=== PATIENT | male | born 1950 | race Caucasian/White ===

== ENCOUNTER 2019-11-05 04:23 | Emergency (ER) | payer MEDICARE, SELFPAY ==
--- NOTE | ~2019-11-05 | CT_ITS ---
EXAMINATION: CT chest abdomen pelvis w con DATE: 11/05/2019 08:03 CDT INDICATION: Fall. Right flank pain. TECHNIQUE: Computed tomography (CT) of the chest, abdomen, and pelvis was performed with 100 cc Omnip aque 350 intravenous contrast. The dose-length product was 541.11 mGy-cm. Automated exposure control and iterative reconstruction technique were employed. COMPARISON: None FINDINGS: CHEST CT: No significant pleural or pericardial effusion. Heart size normal. No evidence for aortic aneurysm or dissection. There is an acute right 10th rib fracture laterally. No pneumothorax. There is emphysema . Calcified granuloma right middle lobe. No focal airspace consolidation. There is coronary atheroscl erosis. ABDOMEN/PELVIS CT: The liver, spleen, pancreas, adrenal glands and kidneys are unremarkable. Gallbladder is present. Non obstructive bowel gas pattern. Bladder is unremarkable. Fatty infiltration of the liver. No free air or free fluid. IMPRESSION: 1. Acute right 10th rib fracture. 2: Emphysema. 3: Hepatic steatosis. Reviewed, dictated and finalized at location B.
[2019-11-05 04:24] VITALS: BP 126/85; PULSE 64; RESP 16; TEMP 36.6; O2SAT 100
--- NOTE | 2019-11-05 04:53 | ED.FALL ---
HPI - Fall General Chief Complaint: Fall Stated Complaint: FALL Time Seen by Provider: 11/05/19 04:29 Source: patient Mode of arrival: EMS Limitations: no limitations History of Present Illness HPI Narrative: This patient is a 68 year old male who presents for evaluation of right flank pain s/p fall. PAtient states he tripped at 3 am this morning. He states he landed on the basement floor . He called 911 for evaluation of pain on right side. He denies hitting his head or LOC. He denies nausea, vomiting, dizziness, or lightheadedness. He takes aspirin every 2 weeks. complaint: fall Related Data Home Medications Medication Instructions Recorded Confirmed aspirin 325 mg tablet 325 mg PO WEEKLY tablet 10/14/19 methylcellulose (laxative) 500 mg 1,500 mg PO DAILY tablet 10/14/19 tablet multivitamin 1 tablet PO DAILY 10/14/19 vitamin E 200 unit capsule 200 unit PO DAILY 10/14/19 Allergies Allergy/AdvReac Type Severity Reaction Status Date / Time Sulfa (Sulfonamide Allergy Unknown Nausea Verified 11/05/19 04:29 Antibiotics) ORAMYCIN Allergy Unknown Unknown Uncoded 11/05/19 04:29 Review of Systems Review of Systems: All systems reviewed & are unremarkable except as noted in HPI and below Constitutional: Constitutional: Denies chills and Denies fever(s) Respiratory: Respiratory: Denies cough, Denies dyspnea and Denies wheezing PMFSH Past Medical History Medical History (Updated 11/05/19 @ 06:57 by Mary Kuhn MD) Essential (primary) hypertension Mixed hyperlipidemia Social History Social History Alcohol intake: current Gender identity (if verbalized by the patient): Male Exam Const: General: no acute distress and alert Orientation/consciousness: patient oriented x3 HENMT: Head: atraumatic Ears: hearing grossly normal bilaterally Mouth: Yes Normal oral and palatal mucosa present and Yes lip normal Throat: posterior oropharynx normal, tonsils normal and uvula midline Eyes: Pupils: Equal, round and reactive pupils present EOM: EOMs intact bilaterally Resp: Effort & Inspection: normal respiratory effort, no retractions and no use of accessory muscles Auscultation: clear to auscultation bilaterally Cardio: Rate: regular rate Rhythm: regular rhythm Heart sounds: no murmurs GI: GI Palp: Yes Soft to palpation and Yes Tenderness to palpation present (GI) (right flank) Auscultation: normal bowel sounds Skin: Rashes: no rashes Other: right lower flank with small area of abrasion and bruising Neuro: General: patient oriented x3 and moves all extremities Extrem: General: normal to inspection Psych: Mental Status: mental status grossly normal Affect: normal affect Course Vital Signs Vital signs: Vital Signs Temperature 97.8 F 11/05/19 04:24 Pulse Rate 64 11/05/19 04:24 Respiratory Rate 16 11/05/19 04:24 Blood Pressure 126/85 11/05/19 04:24 Pulse Oximetry 100 11/05/19 04:24 Temperature 97.8 F 11/05/19 04:24 Pulse Rate 64 11/05/19 04:24 Respiratory Rate 16 11/05/19 04:24 Blood Pressure 126/85 11/05/19 04:24 Pulse Oximetry 100 11/05/19 04:24 MDM - Fall Lab Data Attestation: I reviewed the patient's lab results. Result diagrams: 11/05/19 05:00 11/05/19 05:00 Labs: Lab Results 11/05/19 11/05/19 11/05/19 Range/Units 05:00 05:00 05:00 WBC 8.5 (4.5-10.0) K/mm3 RBC 4.02 L (4.6-6.20) M/mm3 Hgb 14.0 (14.0-18.0) g/dL Hct 40.5 L (42.0-52.0) % MCV 100.7 H (80-100) fl MCH 34.8 H (26-34) pg MCHC 34.6 (32-36) g/dl RDW 12.2 (11.5-14.5) % Plt Count 219 (150-375) k/mm3 MPV 9.1 (7.4-10.4) fl Immature Gran % (Auto) 0.4 (0-0.5) % Neut % (Auto) 57.2 (45.5-73.1) % Lymph % (Auto) 30.9 (18.3-44.2) % Victoria % (Auto) 8.7 H (2.6-8.5) % Eos % (Auto) 2.2 (0-4.4) % Baso % (Auto) 0.6
[2019-11-05 05:10] LABS: Basophils Absolute Auto 0.1 K/mm3 (0.0-0.1); Basophils Percent Auto 0.6 % (0.2-1.2); Eosinophils Absolute Auto 0.2 K/mm3 (0-0.3); Eosinophils Percent Auto 2.2 % (0-4.4); Hematocrit 40.5 % (42.0-52.0); Immature Granulocyte Absolute 0.03 K/mm3 (0.00-0.031); Immature Granulocyte Percent A 0.4 % (0-0.5); Lymphocytes Absolute Auto 2.64 K/mm3 (0.9-3.2); Lymphocytes Percent Auto 30.9 % (18.3-44.2); Mean Corpuscular HGB Conc 34.6 g/dl (32-36); Mean Corpuscular Hemoglobin 34.8 pg (26-34); Mean Corpuscular Volume 100.7 fl (80-100); Mean Platelet Volume 9.1 fl (7.4-10.4); Monocytes Absolute Auto 0.7 K/mm3 (0.1-0.6); Monocytes Percent Auto 8.7 % (2.6-8.5); Neutrophils Absolute Auto 4.9 K/mm3 (1.3-6.7); Neutrophils Percent Auto 57.2 % (45.5-73.1); Platelet Count Result 219 k/mm3 (150-375); Red Blood Count 4.02 M/mm3 (4.6-6.20); Red Cell Distribution Width 12.2 % (11.5-14.5); White Blood Count 8.5 K/mm3 (4.5-10.0)
[2019-11-05 05:20] LABS: Prothrombin Time 12.9 Seconds (11.1-14.7)
[2019-11-05 05:25] LABS: Alanine Aminotransferase 17 U/L (4-50); Alkaline Phosphatase 55 U/L (38-126); Aspartate Amino Transferase 30 U/L (17-59); Bilirubin,Total 0.2 mg/dL (0.2-1.3); Blood Urea Nitrogen 9 mg/dL (9-20); Calcium 8.8 mg/dL (8.4-10.2); Carbon Dioxide 22 mmol/L (22-30); Chloride 103 mmol/L (98-107); Estimated Glomerular Filt Rate > 60; Glucose 93 mg/dL (75-110); Potassium 3.9 mmol/L (3.4-5.0); Sodium 135 mmol/L (137-145)
[2019-11-05 06:05] LABS: Add Urine Microscopic? YES; Appearance Urine Clear (Clear); Bilirubin Urine Negative (Negative); Blood Urine 1+ (Negative); Color Urine Colorless (Yellow); Glucose Urine UA Negative (Negative); Ketones Urine Negative (Negative); Leukocyte Esterase Ur Negative LEU/UL (Negative); Nitrate Urine Negative (Negative); Protein Urine Negative (Negative); Specific Grav Ur 1.005 (1.001-1.035); Urobilinogen Urine Negative mg/dL (<2.0); WBC Urine 0-3 /hpf
[2019-11-05 07:15] VITALS: BP 128/75; PULSE 68; RESP 16; O2SAT 99
== END 2019-11-05 07:17 | disposition home or self-care (01) ==
PROVIDERS: Emergency Provider General Practice; PCP Family Medicine
DX: S22.31XA Fracture of one rib, right side, initial encounter for closed fracture (principal); I10 Essential (primary) hypertension; Z79.82 Long term (current) use of aspirin; E78.2 Mixed hyperlipidemia; W01.0XXA Fall on same level from slipping, tripping and stumbling without subsequent striking against object, initial encounter
CPT/HCPCS: 36415; 71260; 74177; 80053; 81001; 85025; 85610; 85730; 99284; Q9967

== ENCOUNTER → 2020-05-13 11:42 | Outpatient (CLI) | payer MEDICARE, SELFPAY ==
--- NOTE | ~2020-05-13 | CT_ITS ---
EXAMINATION:CT lung screening DATE: 05/13/2020 11:56 INDICATION: Personal history of tobacco dependence. Current smoker with 30 pack year history. TECHNIQUE: Computed tomography (CT) of the chest was performed without intravenous contrast. Automate d exposure control and iterative reconstruction technique were employed. The dose-length product (DLP ) was 70.84 mGy-cm. COMPARISON: Chest CT 11/05/2019 FINDINGS: There is mild scarring at the lung apices. There is mild emphysema. Again seen is a 5 mm no dule in right upper lobe. Again seen is a 5 mm nodule at left major fissure. A calcified right lung n odule is consistent with old granulomatous disease. There is mild dependent atelectasis bilaterally. No pleural effusion. The heart size is normal. There are coronary artery calcifications. No pericardi al effusion. There is mild thoracic spondylosis. There is an old healed fracture of right 10th rib. IMPRESSION: 1. Lung-RADS category 2: Benign appearance or behavior. Continue annual screening with noncontrast lo w-dose chest CT in 12 months. Reviewed, dictated and finalized at location B. ING MACHINE OPERATOR IMPRESSION: 1. Lung-RADS category 2: Benign appearance or behavior. Continue annual screeni ng with noncontrast low-dose chest CT in 12 months.
== END ==
PROVIDERS: PCP Family Medicine; Visit Provider Family Medicine
DX: Z12.2 Encounter for screening for malignant neoplasm of respiratory organs (principal); Z87.891 Personal history of nicotine dependence
CPT/HCPCS: 71271

== ENCOUNTER → 2021-05-16 13:52 | Outpatient (CLI) | payer MEDICARE, SELFPAY ==
--- NOTE | ~2021-05-16 | CT_ITS ---
EXAMINATION: CT lung screening DATE: 05/16/2021 14:04 INDICATION: Personal history of nicotine dependence TECHNIQUE: Computed tomography (CT) of the chest was performed without intravenous contrast. The dose -length product was 71.62 mGy-cm. Automated exposure control and iterative reconstruction technique w ere employed. COMPARISON: CT dated 05/13/2020 FINDINGS: Heart size normal. No thoracic lymphadenopathy. No significant pleural or pericardial effus ion. There is atherosclerosis of the aorta and coronary arteries. The upper abdomen is unremarkable. Stable 5 mm fissural nodule on the left. There is a 5 mm right upper lobe nodule adjacent to the medi astinum, image 43, stable. No new pulmonary nodules or masses. No pneumothorax. No significant pleura l or pericardial effusion. IMPRESSION: 1. Lung-RADS category 2: Benign appearance or behavior. Continue annual screening with noncontrast lo w-dose chest CT in 12 months. Reviewed, dictated and finalized at location B. MBLY MACHINE TENDER IMPRESSION: 1. Lung-RADS category 2: Benign appearance or behavior. Continue annual screeni ng with noncontrast low-dose chest CT in 12 months.
== END ==
PROVIDERS: PCP Family Medicine; Visit Provider Family Medicine
DX: Z87.891 Personal history of nicotine dependence (principal)
CPT/HCPCS: 71271

== ENCOUNTER → 2022-05-02 14:38 | Outpatient (CLI) | payer MEDICARE, SELFPAY ==
--- NOTE | ~2022-05-02 | CT_ITS ---
EXAMINATION:CT lung screening DATE: 05/02/2022 14:52 INDICATION: Personal history of nicotine dependence. Current smoker with 30 pack year history. TECHNIQUE: Computed tomography (CT) of the chest was performed without intravenous contrast. Automate d exposure control and iterative reconstruction technique were employed. The dose-length product (DLP ) was 61.32 mGy-cm. COMPARISON: Chest CT 05/16/2021 FINDINGS: There is stable mild scarring at the lung apices. There is mild emphysema. There is a stabl e 4 mm nodule in right upper lobe. There is a stable 4 mm nodule at left major fissure. There is mild atelectasis on the right. A calcified right lung nodule is consistent with old granulomatous disease . No pleural effusion. The heart size is normal. There are coronary artery calcifications. No pericar dial effusion. There is mild thoracic spondylosis. There is mild chronic anterior wedging of multiple vertebral bodies. IMPRESSION: 1. Lung-RADS category 2: Benign appearance or behavior. Continue annual screening with noncontrast lo w-dose chest CT in 12 months. Reviewed, dictated and finalized at location A. NUE FIELD AUDITOR IMPRESSION: 1. Lung-RADS category 2: Benign appearance or behavior. Continue annual screeni ng with noncontrast low-dose chest CT in 12 months.
== END ==
PROVIDERS: PCP Emergency Medicine; Visit Provider Emergency Medicine
DX: Z12.2 Encounter for screening for malignant neoplasm of respiratory organs (principal); Z87.891 Personal history of nicotine dependence
CPT/HCPCS: 71271

== ENCOUNTER 2022-12-31 12:59 | Emergency (ER) | payer MEDICARE, SELFPAY ==
[2022-12-31 13:15] VITALS: BP 143/76; PULSE 83; RESP 16; TEMP 36.5; O2SAT 97
--- NOTE | 2022-12-31 13:29 | ED.SKABFB ---
HPI - Skin/Abscess/Foreign Bdy General Chief complaint: Skin/Abscess/Foreign Body Stated complaint: INSECT BITE Time Seen by Provider: 12/31/22 13:29 Source: patient Mode of arrival: ambulatory Limitations: no limitations History of Present Illness HPI narrative: Patient is a 72-year-old male that presents with insect bite to left shoulder in surrounding redness. Patient states it has been there for a week. Denies any drainage from wound. States over the last few days the area of redness has grown. Patient is put a Band-Aid on it. Denies any fever, chills, nausea, vomiting, diarrhea. Does report the by is itchy. Related Data Home Medications Medication Instructions Recorded Confirmed methylcellulose (laxative) 500 mg 1,500 mg PO DAILY 10/14/19 12/31/22 tablet (Fiber Laxative (methylcellulose)) multivitamin 1 tablet PO DAILY 10/14/19 12/31/22 aspirin 325 mg tablet 325 mg PO .COMPLEX 11/07/19 12/31/22 salicylic acid-coal tar-sulfur 1 ea topical .3 times weekly 10/26/20 12/31/22 shampoo fluocinolone 0.01 % topical 1 applic topical DAILY PRN psorasis 12/31/22 12/31/22 solution (Synalar) Allergies Allergy/AdvReac Type Severity Reaction Status Date / Time Sulfa (Sulfonamide Allergy Unknown Nausea Verified 12/31/22 13:12 Antibiotics) ORAMYCIN Allergy Unknown Unknown Uncoded 12/31/22 13:12 Review of Systems Review of Systems: All systems reviewed & are unremarkable except as noted in HPI and below Constitutional: Constitutional: Denies body ache(s), Denies chills, Denies fatigue, Denies fever(s), Denies headache(s), Denies malaise and Denies weakness Eyes: Eyes: Denies blurry vision, Denies irritation and Denies loss of vision ENT: Denies otalgia, Denies headache(s), Denies nasal discharge, Denies sinus pain and Denies sore throat Cardiovascular: Cardiovascular: Denies chest pain, Denies irregular heart rhythm and Denies dyspnea Respiratory: Respiratory: Denies dyspnea Gastrointestinal: Gastrointestinal: Denies abdominal pain, Denies melena, Denies hematochezia, Denies diarrhea, Denies nausea and Denies vomiting Musculoskeletal: Musculoskeletal: Denies back pain, Denies myalgias and Denies arthralgias Integumentary/Breasts: Skin/Breast: Reports pruritus, Reports erythema and Denies rash Neurologic: Denies headache(s), Denies loss of vision and Denies weakness Psychiatric: Psychiatric: Reports no additional psychiatric complaints Endocrine: Endocrine: Denies fatigue PMFSH Past Medical History Medical History Essential (primary) hypertension Hyperlipoproteinemia Mixed hyperlipidemia Surgical History Surgical History History of vasectomy Family History Family History Father Patient's father is Carcinoma of colon Sibling Blood clot in vein Social History Social History Social History: Caffeine-coffee Smoking status: Current every day smoker (Smoking > 30 yrs 1ppd and still smokes) Tobacco type: pipe Alcohol intake: current Alcohol use details: beer Lack of Transportation: No Lack of Food: Never True Current Housing: I Have Housing Concerned About Future Housing: No Difficulty Paying Gas/Electric Bills: No Difficulty Paying for Meds: No Currently Unemployed: No Education: Master's Degree or Higher Difficulty w/ Childcare or Family Care: No Gender identity (if verbalized by the patient): Male Comments At time of signature, agree with nursing past medical, surgical, social and family history. There is no relevant family history pertinent to the presenting complaint. Exam Const: General: cooperative, healthy appearing, comfortable, no acute distress and well nourished Nutritional Appearance: well nourished Orientation/cons
== END 2022-12-31 13:39 | disposition home or self-care (01) ==
PROVIDERS: Emergency Provider Nurse Practitioner Family; PCP Family Medicine
DX: L03.114 Cellulitis of left upper limb (principal); I10 Essential (primary) hypertension; E78.5 Hyperlipidemia, unspecified; Z87.891 Personal history of nicotine dependence
CPT/HCPCS: 99213; G0463

== ENCOUNTER 2023-06-05 14:19 | Outpatient (CLI) | payer MEDICARE, SELFPAY ==
--- NOTE | ~2023-06-05 | CT_ITS ---
CT Scan of the Chest without Contrast: Clinical Indication: Lung cancer screening, personal history of nicotine dependence Technique: Contiguous sections were acquired throughout the chest without intravenous contrast. Dose reduction technique was used on this scan by utilizing automated exposure control and iterative recon struction technique. The dose-length product (DLP) was 68.86 mGy-cm. COMPARISON: 05/02/2022 Findings: There is no evidence of any significant mediastinal, hilar or axillary lymphadenopathy. Coronary jose a ry calcifications are present. There is no evidence of pleural or pericardial effusion. Stable nodule along the left fissure. Images through the upper abdomen reveal no abnormalities. Impression: Lung RADS 2: Benign findings. 12 month follow-up screening CT advised. Reviewed, dictated and finalized at location . STICS AND PLANNING MANAGER Impression: Lung RADS 2: Benign findings. 12 month follow-up screening CT advised.
== END 2023-06-05 14:20 ==
LOC: MICIMG 14:20
PROVIDERS: PCP Family Medicine; Visit Provider Family Medicine
DX: Z12.2 Encounter for screening for malignant neoplasm of respiratory organs (principal); Z87.891 Personal history of nicotine dependence
CPT/HCPCS: 71271

== ENCOUNTER 2024-06-24 14:48 | Outpatient (CLI) | payer MEDICARE, SELFPAY | END 2024-06-24 14:49 | disposition home or self-care (01) | LOC: ANHIMG 14:49 | PROVIDERS: PCP Family Medicine; Visit Provider Nurse Practitioner Family | DX: Z12.2 Encounter for screening for malignant neoplasm of respiratory organs (principal); Z87.891 Personal history of nicotine dependence; Z77.22 Contact with and (suspected) exposure to environmental tobacco smoke (acute) (chronic); R91.1 Solitary pulmonary nodule; R93.89 Abnormal findings on diagnostic imaging of other specified body structures | CPT/HCPCS: 71271 ==

== ENCOUNTER 2024-08-01 16:16 | Outpatient (CLI) | payer MEDICARE, SELFPAY ==
--- NOTE | ~2024-08-01 | XR_ITS ---
Right Hand Technique: PA, oblique, and lateral views were obtained. Clinical History: Pain Findings: No acute fracture or dislocation is seen. Osseous alignment is anatomic. Joint spaces are p reserved. Soft tissues are unremarkable. Impression: Unremarkable right hand. Reviewed, dictated and finalized at location M. Impression: Unremarkable right hand.
== END 2024-08-01 16:17 | disposition home or self-care (01) ==
LOC: GOSHIMG 16:16
PROVIDERS: PCP Nurse Practitioner Family; Visit Provider Nurse Practitioner Family
DX: M79.641 Pain in right hand (principal)
CPT/HCPCS: 73130

== ENCOUNTER 2024-08-28 13:39 | Outpatient (CLI) | payer MEDICARE, SELFPAY ==
--- NOTE | ~2024-08-28 | US_ITS ---
US arterial ankle brachial ind INDICATION: Tobacco use TECHNIQUE: Segmental pressures and plethysmographic and Doppler waveforms of the brachial and lower e xtremity arteries were obtained. COMPARISON: None. FINDINGS: Right and left brachial artery pressures of 115 mm Hg and 110 mm Hg, respectively, are concordant (no rmal difference <= 30 mmHg). The right ankle-brachial index (MICHELLE) is 1.17 (normal >= 0.9-1.0). The right great toe-brachial index (TBI) is 0.7 (normal >= 0.60). The left MICHELLE is 1.24. The left TBI is 0.8. IMPRESSION: 1. Normal ankle-brachial indices. Reviewed, dictated and finalized at location A.
--- OUTSIDE RECORDS SUMMARY | 2024-08-28 13:45 | XMS_ITS | Continuity of Care Document ---
Author Organization [facility] Address [address] [place] [address] [place] [address] Phone Care Team Providers Care Egg Crater Name Role Phone Chiki Vela MD Unavailable Unavailable Procedures Procedure Date Fundus Photography W/ Report Eye Exam & Treatment Visual Field Examination(s) Corneal Pachymetry Advance Directives Directive Yes / No Effective Date File Name No Information Encounters Encounter Description Practice Location Reason(s) For Visit Diagnoses Date Provider Providers Copied on Encounter [facility], [address] [place] [address] [address], [place], [place], [id number], tel:[phone] [facility] No Information [address], [place], [id number], [place]. tel:[phone] Referring Provider: Lisandro Farias OD, [facility] [address] [place], [address]. tel:[phone] [facility], [address] [place] [address] [address], [place], [place], [id number], tel:[phone] [facility] No Information [address] [facility] [place] [address], [place], [place], [id number], [place]. tel:[phone] Referring Provider: Lisandro Farias OD, [facility] [address] [place], [address]. tel:[phone] Family History Family Member Type Diagnosis Age At Onset No Information Payers Payer name Insurance type Covered libertarian ID Laurie marin(s) [facility] Commercial CI [id number] Social History Type Description Quantity Date Captured Comments Sex Male Smoking Status No Information Chief Complaint And Reason For Visit No Information Reason For Referral Reason For Referral No Information History Of Present Illness Encounter Date Complaint History Of Prese nt Illness No Information Functional Status Date Functional Assessmen t No Information Instructions Date Instruction Additional Infor mation No Information Assessments Type Assessment Date No Information Patient Care Teams Name Effective Dates (start - stop) Status Members No Information
== END 2024-08-28 13:40 | disposition home or self-care (01) ==
PROVIDERS: PCP Nurse Practitioner Family; Visit Provider Nurse Practitioner Family
DX: I73.9 Peripheral vascular disease, unspecified (principal); Z72.0 Tobacco use
CPT/HCPCS: 93922